=== PATIENT | female | born 1955 | race Caucasian/White ===

== ENCOUNTER → 2017-05-31 | Day surgery (SDC) | payer BC, OTHER ==
[2017-05-24 10:20] VITALS: Ht 149.9 cm; Wt 61.4 kg
[~2017-05-31] VITALS: Ht 149.9 cm; Wt 61.4 kg
[~2017-05-31] MED LIST: ADVIN50/60 INH; ALPR-411 PO; HYDR-5688 PO; IPRA1AER2 INH; SODIUM CHLORIDE 0.9% 500ML 500 ML IV ONE
--- NOTE | 2017-05-31 11:55 | Endo History and Physical ---
History & Physical Date of Service: May 31, 2017. Chief Complaint: GERD and Dysphagia Referring Physician: Dr. Watson History of Present Illness 61 yo CF who presents for EGD secondary to GERD and dysphagia. Past Surgical History Hx Cardiac Surgery: No Hx Internal Defibrillator: No Hx Pacemaker: No Hx Abdominal Surgery: Yes (GASTRIC BYPASS, MARCIA, HYSTERECTOMY) Hx of Implantable Prosthesis: No Hx Post-Op Nausea and Vomiting: No Hx Cancer Surgery: No Hx Thoracic Surgery: No Hx Orthopedic: Yes (RT HAND SURGERY) Hx Urinary Tract Surgery: No Family History Colon CA Social History Smoking Status: Current Every Day Smoker Hx Substance Use: No Hx Alcohol Use: Yes (RARELY) Allergies Coded Allergies: Latex (Verified Allergy, Unknown, RASH, 05/24/17) Uncoded Allergies: TRIPPLE ANTIBIOTIC OINTMENT (Allergy, Unknown, RASH, 05/24/17) Current Medications Reported Home Medications Medications Dose Route/Sig Max Daily Dose Days Date Category Advair Diskus 500/50 60 Dose (Fluticasone Prop/Salmeterol) 1 Ea Aerp 1 Puff INH BID 05/24/17 Reported Combivent Respimat (Ipratropium-Albuterol) 1 Aer Aer 1 Puffs INH QID 05/24/17 Reported Vital Signs Weight (Kilograms): 61.36 Height (Feet): 4 Height (Inches): 11 Physical Exam General Appearance: WD/WN, no apparent distress Respiratory/Chest: Auscultation: breath sounds normal Cardiovascular: Heart Auscultation: RRR Abdomen: Bowel Sounds: normal Inspection & Palpation: soft, non-distended, no tenderness, guarding & rebound Assessment and Plan Assessment: 61 yo CF who presents for EGD secondary to GERD and dysphagia. Plan: Proceed with EGD.
[2017-05-31 12:02] VITALS: TEMP 36.8
--- NOTE | 2017-05-31 12:34 | Discharge Instructions ---
Endoscopy Patient Instructions Date / Procedure(s) Performed May 31, 2017. EGD Allergy Information Coded Allergies: Latex (Verified Allergy, Unknown, RASH, 05/24/17) Uncoded Allergies: TRIPPLE ANTIBIOTIC OINTMENT (Allergy, Unknown, RASH, 05/24/17) Discharge Date / Findings May 31, 2017. Normal EGD Medication Instructions OK to resume all medications today as prescribed Reported Home Medications Medications Dose Route/Sig Max Daily Dose Days Date Category Dose Instructions [place] 5MG/325MG (Acetaminophen/Hydrocodone Bitart) Tab 1 Tab PO TID 30 05/31/17 Reported PRN PAIN Xanax (Alprazolam) 0.5 Mg Tab 0.5 Mg PO TID PRN 05/31/17 Reported Advair Diskus 500/50 60 Dose (Fluticasone Prop/Salmeterol) 1 Ea Aerp 1 Puff INH BID 05/24/17 Reported Combivent Respimat (Ipratropium-Albuterol) 1 Aer Aer 1 Puffs INH QID 05/24/17 Reported Provider Instructions Activity Restrictions - No exercising or heavy lifting for 24 hours. - Do not drink alcohol the day of the procedure. - Do not drive a car or operate machinery until the day after the procedure. - Do not make any important decisions or sign important papers in 24 hours after the procedure. Following Day: - Return to full activity which may include returning to work/school. Diet Start your diet with liquids and light foods (jello, soup, juice, toast). Then eat your usual diet if not nauseated. Treatment For Common After Affects For mild abdominal pain, bloating, or excessive gas: - Rest - Eat lightly - Lie on right side Follow-Up Information Follow-up with Dr. Steven Watson as scheduled Anesthesia Information What You Should Know You have had a procedure that required some medicine to reduce anxiety and discomfort. This treatment is called moderate sedation. After receiving the treatment, you may be sleepy, but you will be able to breathe on your own. The effects of the treatment may last for several hours. Follow these instructions along with Activity/Diet recommendations noted above: * Do NOT do anything where dizziness or clumsiness would be dangerous. * Rest quietly at home today, then you can be up and about tomorrow. * Have a responsible person stay with you the rest of today. * You may have had an I.V. today. If so, you may take the dressing off later today. Recommendations Call your doctor if: * Trouble breathing * Continuous vomiting for more than 24 hours * Temperature above 101 degrees * Severe abdominal pain or bloating * Pain not relieved by pain medicine ordered * There is increased drainage or redness from any incision * A large amount of rectal bleeding greater than 2-3 tablespoons. (If you had a polyp/s removed or have hemorrhoids, a small amount of blood - from the rectum is to be expected.) * You have any unanswered questions or concerns. IN THE EVENT OF A SERIOUS EMERGENCY, GO TO THE NEAREST EMERGENCY ROOM Your discharge instructions were prepared by provider Taye Elmore. Patient Instructions Signature Page Maggie Hampton Patient (or Guardian) Signature/Date: I have read and understand the instructions given to me by my caregivers. Caregiver/RN/Doctor Signature/Date: The above-named patient and/or guardian has received patient instructions on this date. + Original Patient Signature Page (only) stays with chart. Please make copy for patient.
--- NOTE | 2017-05-31 12:39 | GI REPORT ---
Procedure Date: 05/31/2017 11:56 AM Procedure: Upper GI endoscopy Indications: Dysphagia Medicines: Monitored Anesthesia Care Complications: No immediate complications. Estimated Blood Loss: Estimated blood loss: none. Procedure: Pre-Anesthesia Assessment: - Prior to the procedure, a History and Physical was performed, and patient medications and allergies were reviewed. The patient's tolerance of previous anesthesia was also reviewed. The risks and benefits of the procedure and the sedation options and risks were discussed with the patient. All questions were answered, and informed consent was obtained. Prior Anticoagulants: The patient has taken no previous anticoagulant or antiplatelet agents. ASA Grade Assessment: II - A patient with mild systemic disease. After reviewing the risks and benefits, the patient was deemed in satisfactory condition to undergo the procedure. After obtaining informed consent, the endoscope was passed under direct vision. Throughout the procedure, the patient's blood pressure, pulse, and oxygen saturations were monitored continuously. The scope was introduced through the mouth, and advanced to the second part of duodenum. The upper GI endoscopy was accomplished without difficulty. The patient tolerated the procedure well. Findings: The esophagus was normal. Evidence of a patent Billroth I gastroduodenostomy was found. A gastric pouch was found. The gastroduodenal anastomosis was characterized by healthy appearing mucosa. This was traversed. The examined duodenum was normal. Impression: - Normal esophagus. - Patent Billroth I gastroduodenostomy was found, characterized by healthy appearing mucosa. - Normal examined duodenum. - No specimens collected. Recommendation: - Resume previous diet. - Continue present medications. - Perform a barium swallow using barium in liquid and tablet form at appointment to be scheduled. - Return to primary care physician as previously scheduled. Taye Elmore DO 05/31/2017 12:38:33 PM This report has been signed electronically. Note Initiated On: 05/31/2017 11:56 AM I attest to the content of the Intraoperative Record and orders documented therein, exceptions below
[2017-05-31 13:10] VITALS: BP 118/73; PULSE 75; O2SAT 97
--- NOTE | 2017-05-31 13:16 | Anesthesiology Progress Note ---
Anesthesia Post Op Note Date & Time May 31, 2017 at 13:16 Vital Signs Pain Intensity: 0 Vital Signs Past 12 Hours Date Time Temp Pulse Resp B/P (MAP) Pulse Ox O2 Delivery O2 Flow Rate FiO2 05/31/17 13:10 75 18 118/73 (88) 97 Room Air 05/31/17 12:55 77 18 106/64 (78) 95 Room Air 05/31/17 12:40 71 18 101/68 (79) 95 Room Air 05/31/17 12:02 36.8 76 20 121/69 (86) 94 Room Air Notes Mental Status: alert / awake / arousable, participated in evaluation Pt Amnestic to Procedure: Yes Nausea / Vomiting: adequately controlled Pain: adequately controlled Airway Patency, RR, SpO2: stable & adequate BP & HR: stable & adequate Hydration State: stable & adequate Anesthetic Complications: no major complications apparent
== END | disposition home or self-care (01) ==
LOC: C.GI 11:31
PROVIDERS: ATTEND Internal Medicine
DX: R13.10 Dysphagia, unspecified (principal); J45.909 Unspecified asthma, uncomplicated; Z95.1 Presence of aortocoronary bypass graft; F17.200 Nicotine dependence, unspecified, uncomplicated; Z98.84 Bariatric surgery status; Z91.040 Latex allergy status; Z90.49 Acquired absence of other specified parts of digestive tract; Z90.710 Acquired absence of both cervix and uterus; Z98.890 Other specified postprocedural states; Z80.0 Family history of malignant neoplasm of digestive organs

== ENCOUNTER → 2017-06-09 | Outpatient (CLI) | payer BC ==
[~2017-06-09] MED LIST changes: -SODIUM CHLORIDE 0.9% 500ML 500 ML IV ONE
--- NOTE | 2017-06-09 09:45 | DIAGNOSTIC IMAGING REPORT ---
DOUBLE CONTRAST BARIUM ESOPHAGRAM CLINICAL HISTORY: Gastroesophageal reflux disease. COMPARISON STUDY: No priors. TECHNIQUE: A standard air contrast barium esophagram is performed. Multiple spot images of the esophagus are acquired both upright and prone. FINDINGS: The patient swallowed barium without difficulty. The patient was unable to swallow the barium pill. The mucosal pattern is normal. There is no evidence of intrinsic or extrinsic mass lesion. Mild dysmotility is seen in the mid to distal third of the esophagus. No aspiration was identified. The gastroesophageal junction distended normally. No gastroesophageal reflux could be elicited by having the patient perform the Valsalva maneuver. Surgical clips are noted at the gastroesophageal junction. Fluoroscopy time: 0.9 minutes. Fluoroscopic images: 22 IMPRESSION: 1. The patient swallowed barium without difficulty. Mild esophageal dysmotility is observed. 2. The patient was unable to swallow the barium pill. Electronically signed by: Rodolfo Carmona M.D. 06/09/2017 9:43 AM Dictated Date/Time: 06/09/2017 9:41 AM
== END | disposition home or self-care (01) ==
LOC: C.RAD 08:46
PROVIDERS: ATTEND Internal Medicine
DX: K21.9 Gastro-esophageal reflux disease without esophagitis (principal); K22.4 Dyskinesia of esophagus

== ENCOUNTER 2025-01-24 11:15 | Observation (INO) ==
--- NOTE | 2024-12-18 11:51 | PAT Medication Instructions ---
Medication Instructions Date of Service December 18, 2024 Home Medications alprazolam 0.5 mg tablet 0.5 mg PO TID pantoprazole 40 mg tablet,delayed release 40 mg PO QAM cyanocobalamin (vitamin B-12) 1,000 mcg capsule 1,000 mcg PO QAM fluticasone fur. 200 mcg-umeclid 62.5 mcg-vilant 25 mcg inhalat.powder (Trelegy Ellipta) 1 inh inhalation QAM ipratropium 20 mcg-albuterol 100 mcg/actuation mist for inhalation (Combivent Respimat) 1 puff inhalation Q4H PRN sob atorvastatin 40 mg tablet (Lipitor) 40 mg PO QAM cholecalciferol (vitamin D3) 50 mcg (2,000 unit) capsule (Vitamin D3) 50 mcg PO QAM DO NOT take the morning of surgery cyanocobalamin (vitamin B-12) 1,000 mcg capsule 1,000 mcg PO QAM cholecalciferol (vitamin D3) 50 mcg (2,000 unit) capsule (Vitamin D3) 50 mcg PO QAM Take morning of surgery With a small sip of water, OTHERWISE NOTHING TO EAT OR DRINK AFTER MIDNIGHT: alprazolam 0.5 mg tablet 0.5 mg PO TID pantoprazole 40 mg tablet,delayed release 40 mg PO QAM fluticasone fur. 200 mcg-umeclid 62.5 mcg-vilant 25 mcg inhalat.powder (Trelegy Ellipta) 1 inh inhalation QAM ipratropium 20 mcg-albuterol 100 mcg/actuation mist for inhalation (Combivent Respimat) 1 puff inhalation Q4H PRN sob (if needed) atorvastatin 40 mg tablet (Lipitor) 40 mg PO QAM Take evening before surgery alprazolam 0.5 mg tablet 0.5 mg PO TID ipratropium 20 mcg-albuterol 100 mcg/actuation mist for inhalation (Combivent Respimat) 1 puff inhalation Q4H PRN sob (if needed) Other Notes If you have any questions please call us at [phone] or [phone] or [phone] or [phone]
--- NOTE | 2024-12-25 11:06 | Anesthesiology Consultation ---
Date of Service December 25, 2024 Assessment & Plan (1) Encounter for pre-operative examination: - Check BSG DOS - Infectious disease screening: Per assessment on 12/18/24- No known recent infectious disease contacts or current infectious disease symptoms. - Outpatient joint assessment: Pt currently scheduled for inpatient pathway. If surgeon requests review for outpatient joint pathway, patient is an acceptable candidate for outpatient joint program from anesthesia standpoint pending surgeon's office assessment that patient is motivated, has good support and completes Same Day Joint Program preop requirements. - Patient request: Patient indicates severe anxiety preoperatively, "can become aggressive"/requests being sedated prior to being brought to the OR if possible. Chart Review Chart Review: Acceptable Risk for Surgery and Patient seen in Pre Admission Testing Teaching & Discussion Pre-Anesthesia Teaching/Discussion Notes: Instructed NPO after midnight before surgery,except medications with 15 cc of water. Medication instructions provided according to the PAT guidelines. History Surgery Operation Date: 01/24/25 07:00 Proposed Procedures p Right Total Hip Arthroplasty Anterior - Holger Foley, Height/Weight Height: 4 ft 9 in Weight: 58.7 kg Allergies Allergy/AdvReac Type Severity Reaction Status Date / Time latex Allergy Intermediate Rash Verified 12/25/24 09:58 Penicillins Allergy Unknown Unknown Verified 12/25/24 09:58 propoxyphene Allergy Unknown Unknown Verified 12/25/24 09:58 [From [facility]-A[facility]] Triple antibiotic ointment Allergy Rash Uncoded 12/25/24 14:26 Medications Home Medications Medication Instructions Recorded Confirmed Last Taken alprazolam 0.5 mg tablet 0.5 mg PO TID 11/22/21 12/25/24 Unknown pantoprazole 40 mg tablet,delayed 40 mg PO QAM 10/19/23 12/25/24 Unknown release fluticasone fur. 200 mcg-umeclid 1 inh inhalation QAM 08/28/24 12/25/24 Unknown 62.5 mcg-vilant 25 mcg inhalat.powder (Trelegy Ellipta) ipratropium 20 mcg-albuterol 100 1 puff inhalation Q4H PRN sob 08/28/24 12/25/24 Unknown mcg/actuation mist for inhalation (Combivent Respimat) cholecalciferol (vitamin D3) 1,250 50,000 unit PO .weekly 12/25/24 12/25/24 Unknown mcg (50,000 unit) capsule cyanocobalamin (vitamin B-12) 1,000 mcg subcut .wkly x4 then 12/25/24 12/25/24 Unknown 1,000 mcg/mL injection kit monthly rosuvastatin 20 mg tablet 20 mg PO DAILY 12/25/24 12/25/24 Unknown Past Medical History Medical History Anxiety Asthma "Well controlled" Chronic obstructive pulmonary disease "Well controlled" Depression Diabetes mellitus, type 2 Diet controlled Fecal incontinence "Leakage of the bowel"/fecal urgency Fibromyalgia GERD (gastroesophageal reflux disease) History of COVID- ~2020: mild/moderate flu-like symptoms, resolved Hx of colonic polyps Hyperlipidemia Multiple pulmonary nodules Per records, patient denies/unsure Osteoarthritis Peripheral neuropathy Feet Restless leg syndrome Exercise / Class Metabolic Activity II 4-5 Yardwork/Stairs/Walk up hill (one FS: No CP, no SOB) Past Family History Family History Uncle Colorectal cancer Grandmother FHx: breast cancer Other No family history of adverse response to anesthesia Past Surgical History Surgical History H/O bilateral mastectomy (Due to multiple benign cysts) History of adenoidectomy History of appendectomy Removed with hysterectomy History of carpal tunnel surgery of right wrist History of cataract surgery R/L History of cholecystectomy History of colonoscopy History of esophagogastroduodenoscopy (EGD) History of nasal septoplasty History of Judah-en-Y gastric bypass 1980s History of surgery Scalp cyst removal History of surgery on left wrist "Lump" removal History of tonsillectomy S/P KARSON-BSO Unique anesthetic considerations on preoperative anesthesia assessment Patient indicates severe anxiety preoperatively, "can become aggressive"/requests being sedated prior to being brought to the OR if possible. Past Anesthesia History No Family Hx of Anesthesia Complications and Other (Patient indicates severe anxiety preoperatively, "can become aggressive"/requests being sedated prior to being brought to the OR if possible.) History of PONV No Hx of PONV and Hx of Motion Sickness Social History Smoking Status: Current every day smoker Smoking cigarettes per day: 1 PPD (will being using patch prior to surgery) Do You Dip or Chew Tobacco: No Hx Alcohol Use: Yes Alcohol type: beer alcohol intake frequency: a few times a week Hx Substance Use: No substance use type: does not use Review of Systems Patient denies chest pain, shortness of breath, dyspnea on exertion, fever, chills, cough, wheezing, palpitations. Physical Exam Vital Signs BP 105/53 P 75 TEMP 98.4 SP02 95%RA RESP 16 Physical Full cervical extension range of motion. Full TMJ range of motion. TMD > 3.5 finger breaths Mallampati Score I Dentition: edentulous Lungs: clear throughout to auscultation Cardiac: regular rate and rhythm, no murmurs noted Spine: normal Carotid arteries: negative bruit Extremities: no LE edema Lab Results Anesthesia Preop Results Results Anesthesia Widget: WBC 8.18 K/ul (4.8-10.8) 12/25/24 Hgb 11.8 g/dl (12.0-16.0) L 12/25/24 Hct 36.7 % (37.0-47.0) L 12/25/24 Plt 333 K/uL (130-400) 12/25/24 Na 139 mmol/L (136-145) 12/25/24 K 4.3 mmol/L (3.5-5.1) 12/25/24 Cl 105 mmol/L (98-107) 12/25/24 CO2 26 mmol/L (21-32) 12/25/24 BUN 15 mg/dl (6-23) 12/25/24 Creat 0.58 mg/dl (0.6-1.2) L 12/25/24 Glucose Level 93 mg/dl (70-99(Fasting)) 12/25/24 PT 10.2 Seconds (9.0-12.0) 12/25/24 PTT 25 Seconds (21-31) 12/25/24 INR 0.9 (0.9-1.1) 12/25/24 HA1c 6.0 % (4.5-5.6) H 12/25/24 Blood Type A Positive 12/25/24 Antibody Screen NEGATIVE 12/25/24 Testing Electrocardiogram Date: 12/25/24 NSR at 74bpm. Cannot r/o anterior infarct, age undetermined. *Patient denies cardiopulmonary complaints and reports no chest pain or SOB with flight of stairs at PAT visit 12/25/24* Chest X-Ray Date: 12/25/24 FINDINGS: Heart size and pulmonary vasculature are normal. No consolidation or pleural effusion. There are upper abdominal surgical clips. IMPRESSION: No acute findings.
[~2025-01-24 11:15] MED LIST changes: -ADVIN50/60 INH; -ALPR-411 PO; +BUPIVACAINE 0.5 % 5 MG/1 ML PF 10ML VIAL ONE; -HYDR-5688 PO; -IPRA1AER2 INH
[2025-01-24] MEDS: ACETAMINOPHEN 500 MG TAB PO SCH ×2 (11:33→21:30)
[2025-01-24] MEDS: FAMOTIDINE 20 MG TAB PO SCH (11:33)
[2025-01-24] MEDS: GABAPENTIN 300 MG CAP PO SCH (11:33)
[2025-01-24] MEDS: dexAMETHasone**PF** 10 MG/ML VIAL IV SCH (11:33)
[2025-01-24] MEDS: LR 500ML BOLUS, THEN 15ML/HR IV SCH (11:34)
--- NOTE | 2025-01-24 12:08 | History & Physical Bridge Note ---
Date of Service January 24, 2025 History & Physical Bridge Note I have examined the patient, reviewed the History & Physical and in the interval since the performance of the History & Physical I have noted the following changes of clinical significance: no changes noted
[2025-01-24] MEDS: LR 60ML/HR IV SCH (12:19)
[2025-01-24] MEDS ORDERED: MIDAZOLAM HCL 1 MG/ML 2ML VIAL ONE (12:30)
[2025-01-24] MEDS ORDERED: Nursing to Pharmacy Communication SCH (12:30)
[2025-01-24] MEDS ORDERED: PROPOFOL IV EMULSION 10 MG/ML 20 ML VIAL IV ONE (12:39)
[2025-01-24] MEDS ORDERED: LIDOCAINE 2% 2 ML VIAL/AMP(20MG/ML) INFIL ONE (12:39)
[2025-01-24] MEDS: TRANEXAMIC ACID 1,000 MG **IV Pre-op IV SCH (12:46)
[2025-01-24] MEDS: ORTHO JOINT ANESTHETIC ONE (13:34)
[2025-01-24] MEDS: ROPIV 0.5% 246mg, Ketorolac 30mg, EPINEPHrine 0.5mg in NSS INFIL SCH (13:48)
[2025-01-24] MEDS ORDERED: PHENYLEPHRINE HCL 10 MG/ML VIAL ONE (13:49)
--- NOTE | 2025-01-24 13:56 | Operative Report ---
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 Meliza arrived at the hospital for the above procedure. She was seen in the preoperative holding area and the operative extremity was identified and signed. She was given a spinal anesthetic, a preoperative antibiotic, and TXA. She was then taken back to the operating room and laid on the table in the supine position. She was given basic sedation. The operative leg was secured to a Puristst leg positioner. The hip was then prepped and draped in sterile fashion. A timeout was done and the patient and the operative extremity was properly identified. An anterior approach was used. Dissection was taken down through the fascia and the tensor muscle belly was retracted laterally and the rectus was retracted medially. The circumflex vessels were identified and ligated. The capsule was then incised and tagged for later repair. The femoral neck was then cut and the femoral head was removed. The acetabulum was exposed. Time was spent doing a complete circumferential labral release. Sequential reaming of the acetabulum up to a size 45 reamer was done. Final reamings were done under fluoroscopy to ensure appropriate version. A Biomet 46 mm G7 cup was then impacted into place. A single 25 mm screw was placed. The E1 polyethylene liner was then snapped into place. Surrounding soft tissues were then injected with 100 cc of an orthopedic pain control cocktail. The proximal femur was then exposed. Sequential broaching up to a size 1 standard offset broach was done. Off that broach a size 32 head with a 0 neck was trialed. The hip was reduced and fluoroscopic images showed anatomic alignment of the implants in acceptable length. The broach was removed. The final size 1 standard offset Z1 stem was then impacted into place. A ceramic 32 mm head with a 0 neck was then impacted onto the stem and the hip was reduced. Final fluoroscopic images showed anatomic alignment of the hip. The capsule was then closed with #1 Vicryl suture. A dilute betadyne lavage was then done for 3 minutes. The joint was then irrigated with normal saline solution. The fascia was closed with #1 PDS suture. Skin was closed with 2-0 Vicryl, [place] Zipline, and a Silverlon dressing. She was then transferred to a hospital bed and taken to the post anesthesia care unit in stable condition. She tolerated the procedure well. Juan Leblanc PA-C, was present for the entire procedure. He was critical for patient positioning, prepping, draping, retraction exposure, wound closure and application of sterile dressing. I attest to the content of the Intraoperative Record and any orders documented therein. Any exceptions are noted below.
--- NOTE | 2025-01-24 14:21 | Fluoroscopy Report ---
FL hip RT 1V CLINICAL HISTORY: ANTERIOR HIP ARTHROPLASTY COMPARISON STUDY: None FLUOROSCOPY TIME: 8 seconds FLUOROSCOPY IMAGES: 1 EXPOSURE DOSE: 0.8 mGy FINDINGS: Fluoroscopy was provided for right hip prosthesis. IMPRESSION: Intraoperative fluoroscopy. ACT 112: Negative or not required by law. Electronically signed by: Neville Larson M.D. 01/24/2025 2:20 PM
--- NOTE | 2025-01-24 14:38 | XRay Report ---
XR hip 1V RT w pelvis CLINICAL HISTORY: IN PACU - Post Surgical COMPARISON: None FINDINGS: Right hip prosthesis shows no hardware complication. There is expected soft tissue gas. IMPRESSION: Unremarkable postoperative exam. ACT 112: Negative or not required by law. Electronically signed by: Neville Larson M.D. 01/24/2025 2:37 PM
--- NOTE | 2025-01-24 15:03 | Anesthesiology Progress Note ---
Date of Service January 24, 2025 Anesthesia Post Procedure Vital Signs Vital Signs: Temp Pulse Resp BP Pulse Ox O2 Del Method O2 Flow Rate 01/24/25 14:50 75 14 129/62 96 Nasal Cannula 2 01/24/25 14:40 76 16 127/76 93 Room Air 01/24/25 14:30 79 15 135/71 92 Room Air 01/24/25 14:20 81 15 142/62 H 94 Room Air 01/24/25 14:16 36.0 C L 79 18 158/75 H 98 Room Air 01/24/25 11:55 36.9 C 76 18 148/73 H 97 Room Air Pain Intensity Right Hip: Pain Intensity: 6 Notes Mental Status: alert / awake / arousable Patient Amnestic to Procedure: Yes Nausea / Vomiting: adequately controlled Pain: adequately controlled Airway Patency, RR, SpO2: stable & adequate BP & HR: stable & adequate Hydration State: stable & adequate Neuraxial Anesthesia: was administered and sensory block is resolving Anesthetic Complications: no major complications apparent
[2025-01-24] MEDS ORDERED: NALOXONE HCL 0.4 MG/1 ML VIAL/CARP IV PRN (16:23)
[2025-01-24] MEDS ORDERED: HYDROmorphone INJ 0.5 MG/0.5 ML SYR IV PRN (16:23)
[2025-01-24] MEDS ORDERED: METOCLOPRAMIDE HCL INJ 5 MG/ML 2 ML VIAL IV PRN (16:23)
[2025-01-24] MEDS ORDERED: MAGNESIUM HYDROXIDE SUSP 30 ML UDC PO PRN (16:23)
[2025-01-24] MEDS ORDERED: ONDANSETRON INJ 2 MG/ML 2 ML VIAL IV PRN (16:23)
[2025-01-24] MEDS: KETOROLAC TROMETHAMINE 15 MG/ML VIAL IV SCH (17:08)
[2025-01-24] MEDS: SODIUM CHLORIDE 0.9% 1,000 ML IV SCH (17:16)
[2025-01-24] MEDS: SENNA 8.6 MG TAB PO SCH (20:19)
[2025-01-24] MEDS: DOCUSATE SODIUM 100 MG CAP PO SCH (20:19)
[2025-01-24] MEDS: ASPIRIN 81 MG ECTAB PO SCH (20:23)
--- NOTE | 2025-01-25 06:20 | Orthopedic Progress Note ---
Date of Service January 25, 2025 Assessment & Plan (1) Status post right hip replacement: Overall she is doing fairly well. She is not having much pain in the right hip. She will be seen by physical therapy today for ambulation and range of motion exercises. She is on aspirin for DVT prophylaxis. She can be discharged to home later today. She will follow-up with orthopedics in 2 weeks. Alejandra Haider was seen and examined at bedside this morning. Overall she is doing fairly well. She is not having much pain in the right hip. She has been up and ambulating to the bathroom. She has no complaints.. Review of Systems All systems reviewed & are unremarkable except as noted in HPI & below. Physical Exam On physical exam of the right hip, the dressing is clean and dry. Her leg is out full extension. She has active dorsiflexion and plantarflexion of her right ankle.. Results & Data Results & Data Laboratory Results . Diagnostic Findings Postoperative x-rays of the right hip show the prosthesis to be in anatomic alignment without any evidence of fracture, dislocation, or loosening.. PG Care Time/CCT Total # of Minutes Spent Total Time Spent with Patient: Total time spent is greater than 50% in coordination of care (as documented) at patient's floor/unit and/or counseling patient: Coding Level of Care Code 17276 Post Operative Follow-Up Diagnoses Status post right hip replacement Z96.641
[2025-01-25 07:17] VITALS: BP 101/67; PULSE 74; RESP 18; TEMP 98.2; O2SAT 95
[2025-01-25] MEDS: ROSUVASTATIN CALCIUM 20 MG TAB PO SCH (07:49)
[2025-01-25] MEDS: MULTIVITAMIN TAB PO SCH (07:50)
== END 2025-01-25 12:01 | disposition home health service (06) ==
LOC: 3N 11:15 → ASU 11:15